=== PATIENT | female | born 1980 | race Two or more races ===

== ENCOUNTER → 2025-05-06 | Outpatient (CLI) | payer BC, SELFPAY ==
--- NOTE | 2025-05-06 11:37 | XR_ITS ---
Examination: Pelvic ultrasound, transabdominal, complete Technique: Transabdominal ultrasound of the pelvis performed using grayscale imaging Date and time of exam: May 06, 2025, 1150 hours INDICATIONS: Left abdominal pain beginning 2 months ago FINDINGS: Uterus 10.2 cm uterine mass in the fundus with indistinct margins, 4.0 x 2.7 x 2.8 cm Endometrial stripe 1.2 cm Right ovary 3.56 Centimeter arterial flow Left ovary 3.2 cm arterial flow 16mm 15 mm follicular cysts Endometrial stripe 1.2 cm IMPRESSION: 4.0 x 2.7 x 2.8 cm uterine mass with indistinct margins, differential would include malignant neoplasm of the uterus, recommend MRI pelvis follow-up pre and postcontrast
--- NOTE | 2025-05-06 11:37 | XR_ITS ---
Examination: Abdomen sonogram, complete Date and time of exam: May 06, 2025, 1114 hours INDICATIONS: Mid to left abdominal pain beginning 2 months ago. Technique: Multiple real-time grayscale transabdominal sonographic images of the abdomen have been obtained. Findings: Absent gallbladder Normal common bile duct 0.5 cm Pancreatic head 2.7 cm Aorta not enlarged. Liver 18.8 cm fatty infiltration Normal hepatopetal portal venous flow Patent IVC Right kidney 9.8 cm renal cortex 1.3 cm Left kidney 9.2 cm renal cortex 1.7 cm Spleen 10.9 cm Impression: Normal common bile duct Moderate hepatomegaly fatty infiltration
== END | disposition home or self-care (01) ==
PROVIDERS: PCP Nurse Practitioner Family; Referring Provider Nurse Practitioner Family; Visit Provider Nurse Practitioner Family
DX: K76.0 Fatty (change of) liver, not elsewhere classified (principal); R19.00 Intra-abdominal and pelvic swelling, mass and lump, unspecified site
CPT/HCPCS: 76700; 76856

== ENCOUNTER → 2025-07-21 | Outpatient (CLI) | payer BC, SELFPAY ==
[2025-07-19 11:59] LABS: HCG Qualitative,Urine Negative
--- NOTE | 2025-07-21 11:00 | XR_ITS ---
Examination: CT abdomen with intravenous contrast CT pelvis with intravenous contrast 2-D coronal reconstructions 2-D sagittal reconstructions Date and time of exam: July 21, 2025, 1223 hours, comparison December 28, 2020. INDICATIONS: Abdominal distention this week, history kidney stones status post CTDI: vol (mGy) 16.1 DLP: (mGycm) 860 Technique: Multiple axial sections of the abdomen and pelvis have been obtained. 64 slice high-resolution scanner used. 3 mm axial sections have been obtained, post intravenous injection 60 cc [id number] 2-D sagittal, coronal reconstructions obtained. Low dose protocols were performed. One or more of the following dose reduction techniques were used; automated exposure control, adjustment of the mA and/or KV according to patient size, use of iterative reconstruction technique. Findings: No visualized liver or splenic lesion, hepatomegaly 20 cm Absent gallbladder Common bile duct 9 mm no stones No pancreatic mass No adrenal mass No renal or ureteral calculi Aorta normal size Absent appendix No bowel obstruction Anteverted uterus with mildly enlarged fundus No adnexal mass Urinary bladder intact Osseous structures intact IMPRESSION: Hepatomegaly 20 cm Absent gallbladder Common bile duct 9 mm no stones No bowel obstruction Absent appendix Mildly enlarged fundus of the uterus, consider pelvic sonography follow-up
== END | disposition home or self-care (01) ==
PROVIDERS: PCP Nurse Practitioner Family; Referring Provider Specialist; Visit Provider Specialist
DX: R16.0 Hepatomegaly, not elsewhere classified (principal); N85.2 Hypertrophy of uterus; Z90.49 Acquired absence of other specified parts of digestive tract
CPT/HCPCS: 74177; 81025; A4649; Q9967